=== PATIENT | male | born 1980 | race Caucasian/White ===

== ENCOUNTER 2020-03-20 12:54 | Outpatient (REF) | payer OTHER, SELFPAY | END 2020-03-20 12:55 | disposition home or self-care (01) | LOC: HO.LAB 12:54 | PROVIDERS: PCP Hospitalist; Visit Provider Internal Medicine | DX: Z20.828 Contact with and (suspected) exposure to other viral communicable diseases (principal) | CPT/HCPCS: U0003 ==

== ENCOUNTER 2020-08-29 19:13 | Emergency (ER) | payer OTHER, SELFPAY ==
--- NOTE | ~2020-08-29 | XR_ITS ---
EXAMINATION: XR LUMBOSACRAL SPINE CLINICAL INFORMATION: Left lower back pain COMPARISON: None TECHNIQUE: Three views of the lumbosacral spine. FINDINGS: The vertebral bodies and posterior elements are normal. The disc spaces are preserved and the vertebral alignment is normal. The paraspinal soft tissues are normal. There is a linear radiopaque strip over the right side of the abdomen and upper abdomen. Question if this is external to the patient. Clinically correlate. XR/XR lumbar spine 2-3V IMPRESSION: Normal lumbar spine.
[2020-08-29 20:15] VITALS: BP 135/75; BP 155/100; PULSE 87; PULSE 95; RESP 18; TEMP 36.7; O2SAT 98; BMI 30.7
[2020-08-29 22:20] VITALS: BP 118/73; PULSE 76; RESP 18; TEMP 36.9; O2SAT 96
[2020-08-29] MEDS: Ibuprofen 800 MG TABLET PO (22:30)
--- NOTE | 2020-08-30 00:54 | ED_ITS ---
HPI - Back Pain/Injury General Chief Complaint: Back Pain/Injury Stated Complaint: BACK PAIN Time Seen by Provider: 08/29/20 23:34 Source: patient Mode of arrival: EMS Limitations: no limitations History of Present Illness HPI Narrative: Patient comes emergency room complaining of left-sided hip pain radiating down his left leg. Patient states that earlier today, he was sitting on a couch, heard a pop, then he was in a lot of pain and could not stand up. Patient's had to help him to get up, patient was able to walk. Patient denies urinary retention. Patient states he feels a shooting pain running from his lower back down his left leg. MD elicited complaint: back pain Related Data Previous Rx's Medication Instructions Recorded ibuprofen 600 mg PO TID PRN #14 tab 08/30/20 tramadol 50 mg PO BID PRN #7 tab 08/30/20 Allergies Allergy/AdvReac Type Severity Reaction Status Date / Time No Known Allergies Allergy Verified 08/29/20 20:14 Review of Systems Review of Systems: Constitutional : No Weight loss, No Fever, No Chills, No Night Sweats, No Fatigue, No Malaise ENT/Mouth : No Hearing loss, No Ear Pain, No Nasal Congestion, No Sinus Pain, No Hoarseness, No sore throat, No Rhinorrhea, No Swallowing Difficulty Eyes: No Eye Pain, No Swelling, No Redness, No Foreign Body, No Discharge, No Vision Changes Cardiovascular : No Chest Pain, No SOB, No Dyspnea on Exertion, No Orthopnea, No Edema, No Palpitations Respiratory : No Cough, No Sputum, No Wheezing, No Smoke Exposure, No Dyspnea Gastrointestinal : No Nausea, No Vomiting, No Diarrhea, No Constipation, No abdominal Pain, No Hematochezia, No Melena Genitourinary : no irregular bleeding, No Dysuria, No Urinary Frequency, No Hematuria, No Urinary Incontinence, No Urgency, No Flank Pain, No Urinary Flow Changes, No Hesitancy Musculoskeletal : No joint pain, No Myalgias, complaining of lower back pain radiating towards the left leg Skin : No Skin Lesions, No rash Neuro : No Weakness, No Numbness, No Paresthesias, No Loss of Consciousness, No Dizziness, No Headache Psych : No Anxiety/Panic, No Depression, No SI/HI/AH/VH, No Social Issues, Heme/Lymph: No Bruising, No Bleeding,No Lymphadenopathy Endocrine : No Polyuria, No Polydipsia, No Temperature Intolerance [facility], [facility] Social History Social History Advance Directives: No Physical Exam Vital Signs: Vital Signs: Last Vital Signs Temp 98.4 F 08/29/20 22:20 Pulse 70 08/30/20 01:36 Resp 14 08/30/20 01:36 BP 116/77 08/30/20 01:36 Pulse Ox 98 08/30/20 01:36 Body Mass Index 30.7 Appearance: Alert. Oriented X3. No acute distress. Eyes: Pupils equal, round and reactive to light. ENT: Pharynx normal. Neck: Normal inspection. Neck supple. No lymph nodes noted. No crepitus CVS: Normal heart rate and rhythm. Pulses normal. Normal S1 and S2 Respiratory: No respiratory distress. Breath sounds normal. No Wheezing. No rales Abdomen: Soft and nontender. No rigidity. No distention. Rectal tone within normal limits, normal reflex, no saddle anesthesia back: Positive straight leg raise test on the left side Skin: Skin warm and dry. Normal skin color. Normal skin turgor. Extremities: No lower extremity edema. No lower extremity edema. No Lacerations. No Rash Neuro: Oriented X 3. No motor deficit. No sensory deficit. Moving all extermities. No slurred speech. Course Course Course Narrative: Patient states that he feels much better. I discussed with the patient he likely has a bulging disc versus sciatica. Patient instructed to follow-up with his primary care physician. MDM - Back Pain/Injury Imaging Data Lumbar spine x-ray: Radiologist's impression: The vertebral bodies and posterior elements are normal. The disc spaces are preserved and the vertebral alignment is normal. The paraspinal soft tissues are normal. There is a linear radiopaque strip over the right side of the abdomen and upper abdomen. Question if this is external to the patient. Clinically correlate. XR/XR lumbar spine 2-3V IMPRESSION: Normal lumbar spine. Discharge Plan Discharge Clinical Impression: Sciatica Qualifiers: Laterality: left Qualified Code(s): M54.32 - Sciatica, left side Patient Disposition: Home, Self-Care Instructions: Lumbar Radiculopathy (ED) Additional Instructions: Please follow-up with your primary care physician tomorrow. If you have any worsening or new symptoms, please return to the emergency room or call 911 Prescriptions: New ibuprofen 600 mg tablet 600 mg PO TID PRN (Reason: pain) Qty: 14 RF: 0 tramadol 50 mg tablet 50 mg PO BID PRN (Reason: pain) Qty: 7 RF: 0
[2020-08-30] MEDS: HYDROmorphone HCl 1 MG/ML SYRINGE IM (01:14)
[2020-08-30 01:36] VITALS: BP 116/77; PULSE 70; RESP 14; O2SAT 98
--- NOTE | 2020-08-30 01:38 | PC.NURSE ---
REPORT GIVEN TO FALLON SNEED.
== END 2020-08-30 02:29 | disposition home or self-care (01) ==
PROVIDERS: Emergency Provider Emergency Medicine
DX: M54.42 Lumbago with sciatica, left side (principal); M54.16 Radiculopathy, lumbar region
CPT/HCPCS: 72100; 96372; 99284; J1170